=== PATIENT | female | born 1995 | race African-American/Black ===

== ENCOUNTER 2017-08-12 20:16 | Emergency (ER) | payer OTHER ==
[~2017-08-12] VITALS: Ht 165.1 cm; Wt 68.0 kg
[~2017-08-12 20:16] MED LIST: PERC5TAB12 PO; POLY10O EACH EYE
[2017-08-12 20:17] VITALS: BP 112/89; PULSE 112; RESP 18; TEMP 98.3; O2SAT 100
== END 2017-08-13 00:12 | disposition left against medical advice (07) ==
LOC: NED 20:16
DX: R11.10 Vomiting, unspecified (principal); Z53.21 Procedure and treatment not carried out due to patient leaving prior to being seen by health care provider
CPT/HCPCS: 99281

== ENCOUNTER 2017-10-06 10:27 | Emergency (ER) | payer OTHER ==
[2017-10-06 10:37] VITALS: BP 120/74; PULSE 76; RESP 16; TEMP 98.3; O2SAT 100
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
[2017-10-06] MEDS ORDERED: ONDANSETRON ODT 4 MG TAB PO ONE (13:45)
[2017-10-06] MEDS ORDERED: ONDA4TAB7 SL (13:45)
== END 2017-10-06 13:59 | disposition home or self-care (01) ==
LOC: NEPD 10:27
DX: O46.92 Antepartum hemorrhage, unspecified, second trimester (principal); O34.219 Maternal care for unspecified type scar from previous cesarean delivery; Z3A.16 16 weeks gestation of pregnancy
CPT/HCPCS: 87210; 87491; 87591; 99283

== ENCOUNTER 2018-03-07 02:43 | Inpatient (IN) ==
[2018-03-07] MEDS ORDERED: Citric Acid/Sodium Citrate Liq 30 ML UDC PO SCH (03:45)
[2018-03-07] MEDS ORDERED: Morphine Sulfate PF Inj 5 MG/10 ML Ampul ONE (03:53)
[2018-03-07 04:00] LABS: Baso % (Auto) 0.4 % (0.0-2.0); Eos # (Auto) 0.2 th/mm3 (0.0-0.4); Eos % (Auto) 1.9 % (0.0-4.0); Hematocrit 28.3 % (35.0-46.0); Hemoglobin 9.3 gm/dL (11.6-15.3); Lymph # (Auto) 1.8 th/mm3 (1.0-4.8); Lymph % (Auto) 18.8 % (9.0-44.0); Mean Corpuscular HGB Conc 32.8 % (32.0-36.0); Mean Corpuscular Hemoglobin 27.6 pg (27.0-34.0); Mean Corpuscular Volume 84.4 fL (80.0-100.0); Mean Platelet Volume 8.5 fL (7.0-11.0); Mono # (Auto) 0.9 th/mm3 (0.0-0.9); Mono % (Auto) 9.2 % (0.0-8.0); Neut # (Auto) 6.8 th/mm3 (1.8-7.7); Neut % (Auto) 69.7 % (16.0-70.0); Platelet Count 278 th/mm3 (150-450); Red Blood Count 3.36 mil/mm3 (4.00-5.30); Red Cell Distribution Width 16.3 % (11.6-17.2); White Blood Count 9.7 th/mm3 (4.0-11.0)
[2018-03-07] MEDS ORDERED: ceFAZolin Inj 2,000 MG in Sodium Chlor 0.9% Inj 80 ML IV.SIG SCH (04:00)
--- NOTE | 2018-03-07 04:24 | ED ---
History of Present Illness Primary Care Physician: UNKNOWN Chief Complaint: Contractions History of Present Illness: Patient is a 22 year old at 37 weeks and 2 days who presents to OB triage reporting contractions since last night. She denies fluid leakage and vaginal bleeding. She endorses positive movement. Patient was seen in OB triage on 03/05 and 03/01 for evaluation of elevated blood pressures and headaches. Blood pressures were wnl and preeclampsia evaluation negative with normal AST, ALT, and PC ratio 0.20. Urine protein negative. Headaches treated with morphine and Fioricet. Patient has had two previous C-sections. Weeks Gestation:: 37 Para: 2 : 3 - Inpatient Certification I certify that the inpatient services were ordered in accordance with Medicare regulations governing the order. This includes certification that hospital inpatient services are reasonable and necessary and in the case of services not specified as inpatient-only under 42 CFR 419.22(n), that they are appropriately provided as inpatient services in accordance to with the 2-midnight benchmark under 43 CFR 412.3(e) Estimated Total Length of Stay (Days): 3 Plans for Post Hospital Care: Home Review of Systems All other systems reviewed negative except as stated in HPI PMFSH - History History Provided By: Patient - Medical History Medical History: Medical History (Last Updated 03/07/18 @ 04:06 by Kinza Burnett MD, R2) Migraine - Surgical History Surgical History: Surgical History (Last Updated 03/07/18 @ 04:06 by Kinza Burnett MD, R2) Previous section - Family History Family History: Family History (Last Updated 03/07/18 @ 04:07 by Kinza Burnett MD, R2) Other No significant family history - Tobacco History Tobacco Use In Past 30 Days: No Smoking Status: Never smoker - Alcohol History How Often Do You Have a Drink Containing Alcohol: Never - Substance Use History Substance History: No History of Abuse - Travel History History of Recent Travel: No Recent Travel in the [place] Within the Last 8 Weeks: No Recent Travel Out of the Country Within the Last 8 Weeks: No Medications and Allergies Allergies Allergy/AdvReac Type Severity Reaction Status Date / Time bee venom protein (honey bee) Allergy Severe Anaphylaxis Verified 03/01/18 18:34 oxycodone Allergy Severe Itching Verified 03/01/18 18:34 Home Medications Medication Instructions Recorded Confirmed Type No Known Home Medications 03/07/18 03/07/18 History Active Medications: Active Medications Citric Acid/Sodium Citrate (Sodium Citrate/Citric Acid Liq) 30 ml PO CAN DRYER MELANIE Stop: 03/11/18 03:44 Cefazolin Sodium 2,000 mg/ (Sodium Chloride) 100 mls @ 200 mls/hr IV.SIG CAN DRYER MELANIE Stop: 03/11/18 03:59 Lactated Ringer's (Lr 1000 Ml Inj) 1,000 mls @ 2,000 mls/hr IV.SIG .Q30M ONE Stop: 03/07/18 04:07 Lactated Ringer's (Lr 1000 Ml Inj) 1,000 mls @ 150 mls/hr IV.CONT .Q6H40M [facility] Exam Vital signs: Vital Signs 03/07/18 03:11 03/07/18 03:14 Temperature 99.0 F Pulse Rate 79 Respiratory Rate 20 Blood Pressure 149/71 H Intake & Output 03/06/18 03/06/18 03/07/18 06:59 18:59 06:59 Weight 99.79 kg Narrative: GENERAL: Well-nourished, well-developed patient. SKIN: Warm and dry. HEAD: Normocephalic and atraumatic. EYES: No scleral icterus. No injection or drainage. ENT: No nasal drainage noted. Mucous membranes pink. Airway patent. NECK: Supple, trachea midline. No JVD. CARDIOVASCULAR: Regular rate and rhythm without murmurs, gallops, or rubs. RESPIRATORY: Breath sounds equal bilaterally. No accessory muscle use. ABDOMEN/GI: Abdomen soft, non-tender, bowel sounds present, no rebound, no guarding Gravid to 37 weeks size GENITOURINARY: External Genitalia: intact and normal in appearance Dilatation: 2 cm Effacement: 70% Station: -2 Membranes: intact Uterine Contractions: irregular FHT's: Category: 1 Baseline: 130 Reactive: + Variability: moderate Decels: none EXTREMITIES: No cyanosis or edema. BACK: Nontender without obvious deformity. No CVA tenderness. NEUROLOGICAL: Awake and alert. Motor and sensory grossly within normal limits. Five out of 5 muscle strength in all muscle groups. Normal speech. Results - Labs CBC & Chem 7: 03/07/18 03:35 03/07/18 03:35 Assessment and Plan - Diagnosis (1) 37 weeks gestation of Code(s): Z3A.37 - 37 weeks gestation of Status: Acute - Plan Patient is a 22 year old at 37 weeks and 2 days presenting with contractions. Admitted for delivery. Admit to L&D for section. Routine orders placed. Tubal ligation consent formed signed. - Attending Attestation The exam, history, and the medical decision-making described in the above note were completed with the assistance of the resident physician. I reviewed and agree with the findings presented. I attest that I had a [id number] encounter with the patient on the same day, and personally performed and documented my assessment and findings in the medical record. Discharge Plan - Physicians Team ED Provider: Dino Cui Primary Care Provider: UNKNOWN,
[2018-03-07 04:27] LABS: Bacteria,Urine Rare /hpf; Bilirubin,Urine Negative (Negative); Clarity,Urine Hazy (Clear); Color,Urine Yellow (Yellw/Straw); Glucose,Urine (UA) Negative (Negative); Leukocyte Esterase,Urine Negative (Negative); Mucus,Urine Few /lpf (Occasional); Nitrite,Urine Negative (Negative); Specific Gravity,Urine 1.015 (1.002-1.035); Squamous Epithelial Cell,Urine 2 /hpf (0-5)
[2018-03-07 04:29] LABS: Amphetamine Screen,Urine Neg (Neg); Barbiturate Screen,Urine Pos (Neg); Cannabinoid Screen,Urine Pos (Neg); Cocaine Screen,Urine Neg (Neg)
[2018-03-07 04:40] LABS: Opiate Screen,Urine Neg (Neg)
[2018-03-07 05:00] LABS: Albumin 2.9 g/dL (3.4-5.0); Anion Gap 9 meq/L (5-15); Aspartate Aminotransferase 16 U/L (15-37); Blood Urea Nitrogen 5 mg/dL (7-18); Calcium 7.8 mg/dL (8.5-10.1); Chloride 109 meq/L (98-107); Glomerular Filtration Rate Greater Than 89 mL/min (>89); Glucose,Random 100 mg/dL (74-106); Potassium 3.5 meq/L (3.5-5.1); Sodium 141 meq/L (136-145)
[2018-03-07 05:01] LABS: Alanine Aminotransferase 11 U/L (10-53)
[2018-03-07 05:03] LABS: Alkaline Phosphatase 116 U/L (45-117); Total Protein 6.6 g/dL (6.4-8.2)
[2018-03-07 05:25] LABS: Cord Arterial Blood HCO3 24.2
[2018-03-07] MEDS ORDERED: Oxytocin 30 Units/500ml Premix 30 UNITS/500 ML BAG IV.SIG ONE (05:37)
[2018-03-07] MEDS ORDERED: Simethicone 80 MG Chew Tablet PO PRN (05:37)
--- NOTE | 2018-03-07 05:37 | P.OP ---
- Preoperative Diagnosis (1) History of (2) Active labor at term Comment: Patient desires sterilization. Due to the emergent nature of her delivery this will be performed. - Postoperative Diagnosis (1) Active labor at term Comment: Patient desires sterilization. Due to the emergent nature of her delivery this will be performed. (2) History of Date of procedure: 03/07/18 Procedure: Repeat lower uterine segment transverse section, bilateral tubal ligation Anesthesia: spinal Surgeon: Dino Cui MD Estimated blood loss (mL): 600 Pathology: other (Cord blood, tubal segments right and left) Operation and Findings: Findings: Normal-appearing tubes ovaries and uterus Procedure: The patient was taken to the operating room and after administration of a satisfactory spinal anesthetic was prepped and draped in the dorsal supine position. The skin was incised transversely along the previous scar and the subcutaneous tissue was sharply dissected away down to the level of the fascia which was nicked in the midline extended bilaterally with scissors. The fascia was from the underlying muscle with sharp and blunt dissection. The muscle was sharply entered in the midline and extended with blunt dissection. The peritoneum was bluntly entered. A bladder flap was created with sharp dissection. Transverse hysterotomy was made in the lower uterine segment and membranes were encountered with meconium fluid noted. The vertex was elevated out of the pelvic inlet and delivered easily through the hysterotomy. The remainder the followed easily. Delayed cord clamping was accomplished. Cord blood sample and cord blood gas segment were obtained. The placenta passed with gentle traction and fundal massage. The uterine cavity was wiped with a moist lap sponge. The hysterotomy was then closed with a running suture of 0 Monocryl. After observing excellent hemostasis the attention was turned to the tubal ligation. The right fallopian tube was elevated and a knuckle of tube was doubly ligated and excised and passed off as specimen. The same technique was carried out on the opposite tube. The paracolic gutters and posterior cul-de-sac were evacuated of blood and amniotic fluid. All operative sites were dry. The uterus was replaced in the peritoneal cavity. The fascia was closed anteriorly with #1 PDS. The subcutaneous tissue was closed with 3-0 Vicryl and the skin with 4-0 Vicryl and tissue glue. Sponge instrument needle counts were correct 3. There were no complications.
[2018-03-07] MEDS ORDERED: Oxytocin 30 Units/500ml Premix 30 UNITS/500 ML BAG ONE (07:45)
[2018-03-07] MEDS ORDERED: Naloxone Inj 0.4 MG/ML Vial IV.PUSH PRN (09:02)
[2018-03-07] MEDS ORDERED: Oxytocin 30 Units/500ml Premix 30 UNITS/500 ML BAG IV.SIG PRN (10:37)
[2018-03-07] MEDS ORDERED: Ketorolac Inj 30 MG/ML (IVP) Vial IV.PUSH ONE (12:00)
[2018-03-07] MEDS: Senna/Docusate Sodium 8.6/50 MG Tablet PO PRN (20:11)
[2018-03-08 05:52] LABS: Baso % (Auto) 0.4 % (0.0-2.0); Eos # (Auto) 0.3 th/mm3 (0.0-0.4); Eos % (Auto) 2.8 % (0.0-4.0); Hematocrit 23.7 % (35.0-46.0); Hemoglobin 7.7 gm/dL (11.6-15.3); Lymph # (Auto) 2.8 th/mm3 (1.0-4.8); Lymph % (Auto) 24.8 % (9.0-44.0); Mean Corpuscular HGB Conc 32.4 % (32.0-36.0); Mean Corpuscular Hemoglobin 27.4 pg (27.0-34.0); Mean Corpuscular Volume 84.5 fL (80.0-100.0); Mean Platelet Volume 8.8 fL (7.0-11.0); Mono % (Auto) 8.5 % (0.0-8.0); Neut # (Auto) 7.3 th/mm3 (1.8-7.7); Neut % (Auto) 63.5 % (16.0-70.0); Platelet Count 234 th/mm3 (150-450); Red Blood Count 2.81 mil/mm3 (4.00-5.30); Red Cell Distribution Width 16.1 % (11.6-17.2); White Blood Count 11.4 th/mm3 (4.0-11.0)
--- NOTE | 2018-03-08 08:20 | P.PNOB ---
Subjective Interval history: Postoperative day #1 AFVSS overnight. Incision not draining. Decreased lochia. Denies dysuria. No breast tenderness. Appetite good. No nausea or vomiting. Positive flatus. Ambulating well. Denies calf pain or shortness of breath. Otherwise, she is doing well this morning and has no other complaints. Objective Vital Signs/I&O: Vital Signs 03/07/18 12:00 03/07/18 16:00 03/07/18 20:00 Temperature 98.5 F 98.3 F 99.1 F Pulse Rate 66 65 67 Respiratory Rate 18 18 18 Blood Pressure 123/80 135/81 140/72 03/08/18 00:00 03/08/18 04:00 Temperature 98.5 F 98.1 F Pulse Rate 60 55 L Respiratory Rate 18 18 Blood Pressure 150/87 H 125/59 L Result Diagrams: 03/08/18 04:32 03/07/18 03:35 Objective Remarks: GENERAL: Well-nourished, well-developed patient. CARDIOVASCULAR: Regular rate and rhythm without murmurs, gallops, or rubs. RESPIRATORY: Breath sounds equal bilaterally. No accessory muscle use. ABDOMEN/GI: Abdomen soft, non-tender, bowel sounds present. Incision: Clean, dry and intact. Fundus: Firm, non-tender at umbilicus. GENITOURINARY: Light to moderate bleeding. EXTREMITIES: No cyanosis or edema, non-tender, without signs of DVT. Medications and IVs: Active Medications Citric Acid/Sodium Citrate (Sodium Citrate/Citric Acid Liq) 30 ml PO MGMT ANALYST [facility] Stop: 03/11/18 03:44 Diphenhydramine HCl (Benadryl Inj) 25 mg IV.PUSH Q6H PRN PRN Reason: MILD TO MODERATE ITCHING Stop: 03/08/18 09:01 Last Admin: 03/08/18 02:07 Dose: 25 mg Diphenhydramine HCl (Benadryl) 50 mg PO Q6H PRN PRN Reason: MILD TO MODERATE ITCHING Stop: 03/08/18 09:01 Diphtheria/Pertussis/Tetanus Vacc (Boostrix Vaccine Inj) 0.5 ml IM .ONCE ONE Stop: 03/08/18 16:01 Cefazolin Sodium 2,000 mg/ (Sodium Chloride) 100 mls @ 200 mls/hr IV.SIG MGMT ANALYST [facility] Stop: 03/11/18 03:59 Lactated Ringer's (Lr 1000 Ml Inj) 1,000 mls @ 150 mls/hr IV.CONT .Q6H40M [facility] Last Admin: 03/08/18 08:12 Dose: Not Given Oxytocin (Pitocin 30 Units/Ns 500 Ml Premix) 30 units in 500 mls @ 100 mls/hr IV.SIG UNSCH PRN PRN Reason: Heavy bleeding Ketorolac Tromethamine (Toradol Inj) 30 mg IM Q6H PRN PRN Reason: SEE LABEL COMMENTS Last Admin: 03/08/18 08:09 Dose: 30 mg Measles/Mumps/Rubella Vaccine Live (M-M-R Ii Vaccine Inj) 0.5 ml SQ .ONCE ONE Stop: 03/08/18 16:01 Miscellaneous Information ([facility] Nursing Information) 1 each OTHER UNSCH PRN PRN Reason: SEE LABEL COMMENTS Stop: 03/08/18 09:01 Miscellaneous Information ([facility] Nursing Information) 1 each OTHER UNSCH PRN PRN Reason: SEE LABEL COMMENTS Stop: 03/08/18 09:01 Naloxone HCl (Narcan Inj) 0.4 mg IV.PUSH UNSCH PRN PRN Reason: SEE LABEL COMMENTS Stop: 03/08/18 09:01 Ondansetron HCl (Zofran Inj) 4 mg IV.PUSH Q6H PRN PRN Reason: NAUSEA OR VOMITING Senna/Docusate Sodium (Lizzy-Colace) 2 tab PO Q12H PRN PRN Reason: CONSTIPATION Last Admin: 03/07/18 20:11 Dose: 2 tab Simethicone (Mylicon Chew) 80 mg PO QID PRN PRN Reason: FLATULENCE Sodium Chloride (Ns Flush) 2 ml IV.FLUSH BID [facility] Last Admin: 03/07/18 22:41 Dose: 2 ml Sodium Chloride (Ns Flush) 2 ml IV.FLUSH PRN PRN PRN Reason: FLUSH AFTER USING IV ACCESS Last Admin: 03/08/18 02:08 Dose: 2 ml Assessment and Plan - Diagnosis (1) 37 weeks gestation of Code(s): Z3A.37 - 37 weeks gestation of Status: Acute - Plan 22y/o female who is POD#1 s/p CXN. -Continue routine care. -Percocet and Motrin PRN pain. -Encouraged OOB. Advised pelvic rest for 6 wks. Will need a f/u appt. in 1 wk for incision check. -Re: ctrl, she has had a tubal ligation. -D/c likely tomorrow. wdw Dr. Kunz
[2018-03-08] MEDS: Butalbital/APAP/Caff 50/325/40 MG Tablet PO PRN (15:53)
[2018-03-08] MEDS ORDERED: Diphtheria/Tetanus/Pertussis Vaccine Inj 0.5 ML Syringe IM ONE (16:00)
[2018-03-08] MEDS ORDERED: Measles/Mumps/Rubella Vaccine Inj 0.5 ML Vial SQ ONE (16:00)
[2018-03-09] MEDS: Senna/Docusate Sodium 8.6/50 MG Tablet PO PRN (01:00)
[2018-03-09] MEDS: Butalbital/APAP/Caff 50/325/40 MG Tablet PO PRN ×3 (08:13→23:41)
--- NOTE | 2018-03-09 09:47 | P.PNOB ---
Subjective Interval history: Patient is a 22-year-old G 3 p to delivered at 37 weeks and 2 days. Patient is post op day 2 after repeat bilateral tubal ligation. Patient was seen at bedside this morning and reported having a unilateral posterior and left frontal headache. Her headache is not associated with any visual symptoms , right upper quadrant pain, shortness of breath or dizziness but does endorse some nausea. This morning patient also had some elevated blood pressures of 168 /111 while experiencing the headache and 156/103 immediately after. Patient's pain is well-controlled but reports continued soreness at the incision site. Patient reports eating and drinking without nausea or vomiting. She reports minimal vaginal bleeding and is ambulating well. Patient is urinating and but has not yet had a BM. Patient denies any chest pain, vomiting, fever, chills, calf pain, or new lower extremity swelling. Objective Vital Signs/I&O: Vital Signs 03/08/18 17:00 03/08/18 20:00 03/09/18 08:00 Temperature 98.5 F 98.2 F 98.8 F Pulse Rate 78 59 L 70 Respiratory Rate 18 Blood Pressure 145/78 H 108/70 168/96 H 03/09/18 08:20 Temperature Pulse Rate 80 Respiratory Rate Blood Pressure 156/103 H Result Diagrams: 03/08/18 04:32 03/07/18 03:35 Objective Remarks: GENERAL: Well-nourished, well-developed patient. CARDIOVASCULAR: Regular rate and rhythm without murmurs, gallops, or rubs. RESPIRATORY: Breath sounds equal bilaterally. No accessory muscle use. ABDOMEN/GI: Abdomen soft, non-tender, bowel sounds present. Incision: Clean, dry and intact. Fundus: Firm, non-tender at umbilicus. GENITOURINARY: Light to moderate bleeding. EXTREMITIES: No cyanosis or edema, non-tender, without signs of DVT. Medications and IVs: Active Medications Acetaminophen/Butalbital/Caffeine (Fioricet 50-325-40) 1 tab PO Q4H PRN PRN Reason: HEADACHE Last Admin: 03/09/18 08:13 Dose: 1 tab Hydrocodone Bitart/Acetaminophen ([place] 5/325) 1 tab PO Q4H PRN PRN Reason: PAIN SCALE 3 TO 5 Last Admin: 03/09/18 01:00 Dose: 1 tab Hydrocodone Bitart/Acetaminophen ([place] 5/325) 2 tab PO Q4H PRN PRN Reason: PAIN SCALE 6 TO 10 Last Admin: 03/09/18 09:24 Dose: 2 tab Citric Acid/Sodium Citrate (Sodium Citrate/Citric Acid Liq) 30 ml PO [employer]ACH[employer]NER MELANIE Stop: 03/11/18 03:44 Diphenhydramine HCl (Benadryl) 25 mg PO Q45H PRN PRN Reason: ITCHING FROM LORTAB Last Admin: 03/09/18 09:23 Dose: 25 mg Ibuprofen (Motrin) 800 mg PO Q6H PRN PRN Reason: HEADACHE Senna/Docusate Sodium (Lizzy-Colace) 2 tab PO Q12H PRN PRN Reason: CONSTIPATION Last Admin: 03/09/18 01:00 Dose: 2 tab Simethicone (Mylicon Chew) 80 mg PO QID PRN PRN Reason: FLATULENCE Assessment and Plan - Diagnosis (1) 37 weeks gestation of Code(s): Z3A.37 - 37 weeks gestation of Status: Acute - Plan Patient is a 22-year-old G 3 p to delivered at 37 weeks and 2 days. Patient is post op day 2 after repeat bilateral tubal ligation. Overnight patient had a left-sided headache which was treated with Motrin this morning. After treatment of her headache patient blood pressure came down from 156/103 to 140/84. Patient is currently not experiencing any neurological or visual symptoms. Keep patient inpatient for 1 more day to monitor blood pressures. -Continue to monitor vitals every 4 -Continue routine care. -Percocet and Motrin PRN pain. -Encouraged OOB. -Re: ctrl, she has had a tubal ligation. -D/c likely tomorrow. Case discussed with Dr. Kunz and Dr. Gracia - Attending Attestation The patient was seen and examined by me and I participated in all obrien decision making. Continue routine postoperative and care. Anticipate discharge home tomorrow. Continue pain management. SMS
[2018-03-10 07:54] VITALS: BP 149/87; PULSE 65; RESP 20; TEMP 98.2
--- NOTE | 2018-03-10 09:09 | P.PNOB ---
Subjective Interval history: Patient is a 22-year-old G 3 p to delivered at 37 weeks and 2 days. Patient is post op day 3 after repeat and bilateral tubal ligation. Patient was seen at bedside this morning and reports having a minor headache this morning. Her headache is not associated with any visual symptoms, right upper quadrant pain, shortness of breath, nausea or dizziness. At 8 PM yesterday patient had a blood pressure 158/96 and is currently 149/97. Patient's pain is well- controlled but reports continued soreness at the incision site. Patient repo Patient denies any chest pain, vomiting, fever, chills, calf pain, or new lower extremity swelling. She reports eating and drinking without nausea or vomiting. She reports minimal vaginal bleeding and is ambulating well. Objective Vital Signs/I&O: Vital Signs 03/09/18 10:13 03/09/18 19:57 03/10/18 07:54 Temperature 99.1 F 98.2 F Pulse Rate 71 75 65 Respiratory Rate 18 20 Blood Pressure 140/84 158/96 H 149/87 H Result Diagrams: 03/08/18 04:32 03/07/18 03:35 Objective Remarks: GENERAL: Well-nourished, well-developed patient. CARDIOVASCULAR: Regular rate and rhythm without murmurs, gallops, or rubs. RESPIRATORY: Breath sounds equal bilaterally. No accessory muscle use. ABDOMEN/GI: Abdomen soft, non-tender, bowel sounds present. Incision: Clean, dry and intact. Fundus: Firm, non-tender at umbilicus. GENITOURINARY: Light to moderate bleeding. EXTREMITIES: No cyanosis or edema, non-tender, without signs of DVT. Medications and IVs: Active Medications Acetaminophen/Butalbital/Caffeine (Fioricet 50-325-40) 1 tab PO Q4H PRN PRN Reason: HEADACHE Last Admin: 03/09/18 23:41 Dose: 1 tab Hydrocodone Bitart/Acetaminophen ([place] 5/325) 1 tab PO Q4H PRN PRN Reason: PAIN SCALE 3 TO 5 Last Admin: 03/09/18 01:00 Dose: 1 tab Hydrocodone Bitart/Acetaminophen ([place] 5/325) 2 tab PO Q4H PRN PRN Reason: PAIN SCALE 6 TO 10 Last Admin: 03/10/18 08:12 Dose: 2 tab Citric Acid/Sodium Citrate (Sodium Citrate/Citric Acid Liq) 30 ml PO GEOTECHNICIAN MELANIE Stop: 03/11/18 03:44 Diphenhydramine HCl (Benadryl) 25 mg PO Q45H PRN PRN Reason: ITCHING FROM LORTAB Last Admin: 03/10/18 08:12 Dose: 25 mg Ibuprofen (Motrin) 800 mg PO Q6H PRN PRN Reason: HEADACHE Last Admin: 03/10/18 08:12 Dose: 800 mg Senna/Docusate Sodium (Lizzy-Colace) 2 tab PO Q12H PRN PRN Reason: CONSTIPATION Last Admin: 03/09/18 01:00 Dose: 2 tab Simethicone (Mylicon Chew) 80 mg PO QID PRN PRN Reason: FLATULENCE Assessment and Plan - Diagnosis (1) 37 weeks gestation of Code(s): Z3A.37 - 37 weeks gestation of Status: Acute - Plan Patient is a 22-year-old G 3 p to delivered at 37 weeks and 2 days. Patient is post op day 3 after repeat and bilateral tubal ligation. Patient continues to have mild headache this morning. Patient had one episode of blood pressure at 158/96 at 8 PM last night but is currently 149/97. Patient is asymptomatic has no visual symptoms, right upper quadrant pain, or shortness of breath. Patient to be discharged home today. Patient to follow-up with primary OB provider for incision check in 1 week as well as repeat blood pressure. If patient has any visual symptoms or any neurological symptoms seek immediate medical attention. -Discharge home today -Continue routine care. -Percocet and Motrin PRN pain. -Encouraged OOB. -Re: ctrl, she has had a tubal ligation. Case discussed with Dr. Kunz
== END 2018-03-10 12:09 | disposition home or self-care (01) ==
LOC: HOBED 02:43 → H2E 03:34 → H1EA 08:30
PROVIDERS: ADMIT Obstetrics & Gynecology; ATTEND Obstetrics & Gynecology